=== PATIENT | female | born 1950 | race Caucasian/White ===

== ENCOUNTER 2016-12-04 07:18 | Day surgery (SDC) | payer MEDICARE, OTHER ==
[~2016-12-04 07:18] MED LIST: Lactated Ringers 1,000 ML IV SCH
[2016-12-04] MEDS ORDERED: Lactated Ringers 1,000 ML IV ONE ×2 (07:20→09:18)
[2016-12-04 07:42] VITALS: O2SAT 98
[2016-12-04] MEDS ORDERED: DIPRIVAN 200 MG/20 ML IV ONE (08:00)
[2016-12-04] MEDS ORDERED: Ketamine HCl 50 MG/ML IJ ONE (08:00)
[2016-12-04 10:39] VITALS: BP 137/58; PULSE 53
--- NOTE | 2016-12-05 08:30 | OP ---
PROCEDURE DATE/TIME: 12/04/2016 0850 PREOPERATIVE DIAGNOSES: 1) GI bleed. 2) Left upper quadrant abdominal pain. POSTOPERATIVE DIAGNOSES: 1) Peptic ulcer disease with multiple gastric ulcers including one moderate sized antral ulcer of approximately 3 cm. 2) Mild gastritis. 3) Mild duodenitis. 4) Colonic polyp. 5) Mild diverticulosis. 6) External hemorrhoids, mild disease. PROCEDURES: 1) EGD. 2) Colonoscopy. PROCEDURE PERFORMED BY: Nenita Olson M.D. ANESTHESIA: MAC. ESTIMATED BLOOD LOSS: Minimal. COMPLICATIONS: None. SPECIMENS: 1) Gastric antral ulcer. 2) Descending colon polyp. HISTORY: This is a patient who presents with GI bleeding and left upper quadrant abdominal pain. All risks, benefits, alternatives to EGD and colonoscopy were discussed with the patient preoperatively and she understands and would like to proceed. She was seen in the preoperative area again and any remaining questions are answered. DESCRIPTION OF PROCEDURE: She was brought back to the endoscopy suite. She was laid in the left lateral decubitus position. A complete time out was performed. The scope was then entered into the mouth, oropharynx and down into the esophagus. The scope was easily advanced into the stomach and we then encountered a few wispy streaks of old blood. Multiple peptic ulcers are identified. Each of these was quite small less than 1 cm. None of them appeared malignant. We did however find one moderate to large size ulcer right in the antrum leading towards the pylorus and this was an approximate 3 cm ulcer. None of the ulcers are bleeding. None of them looked malignant but I do believe that this is likely the cause of her left upper quadrant pain and may have contributed in the past to her GI bleeding. The scope was then easily advanced into the duodenum. There was some mild duodenitis and then the scope was withdrawn back into the antrum. She did have some mild gastritis as well throughout the body of the stomach. The scope was able to be retroflexed to look at the hiatus. The cardia of the stomach looked healthier. The scope was then un-retroflexed. We revisualized the ulcers. Again there were no malignancies. I did take multiple biopsies of the larger ulcer and sent these to pathology as gastric antral ulcer biopsies and I also biopsied the smaller gastric ulcer. She had a couple more gastric ulcers that appeared very benign. All of these biopsies were taken with cold forceps and each site was hemostatic after biopsy. The stomach was desufflated and the scope was carefully withdrawn. I did not find any other findings. We will plan to scope her in approximately two to three months. I have started her on a proton pump inhibitor as well as Carafate. She was then repositioned for colonoscopy. First, a rectal exam was done. The patient does have a small external hemorrhoid. The disease here is very mild. The scope was then inserted and then carefully advanced towards the cecum. Her colon is extremely tortuous. She does have mild diverticulosis and she did have a small amount of stool in the colon which we had to suction and irrigate. A very small or flat lesion could be missed in this site where the prep was not perfect. However, we were able to see much of the mucosa and this appeared very healthy. In route to the cecum, we did identify a polyp at approximately the level of the descending colon this is taken with hot snare in entirety. The site looked excellent after it was removed. We retrieved this and sent this to pathology. We were able to carefully guide the scope to the cecum with some gentle abdominal pressure. In the cecum the appendiceal orifice is visualized and then we could see the edge of the ileocecal valve. I could not intubate the valve because it was quite an angle so we could only see the edge of this. I did not see any obvious issues in the cecum. We then carefully withdrew the scope taking a circumferential look. There were no other significant findings except for the polyp that was already removed and the mild diverticulosis and mild hemorrhoidal disease. The scope is then completely withdrawn after desufflating the rectum. The patient tolerated the procedures very well. There were no immediate complications. We will start her on proton pump inhibitor, Carafate, and then repeat her EGD in approximately two to three months and then we will plan to do another colonoscopy in approximately three years or sooner should she have any new symptoms. She will also follow up with me in approximately one to two weeks to discuss the results of her pathology findings when they come back.
== END 2016-12-04 11:09 | disposition home or self-care (01) ==
LOC: SDC 07:18
PROVIDERS: ATTEND Surgery
PROC: 0DB68ZX Excision of Stomach, Via Natural or Artificial Opening Endoscopic, Diagnostic (ICD-10-PCS; principal; 2016-12-04)
PROC: 0DBM8ZX Excision of Descending Colon, Via Natural or Artificial Opening Endoscopic, Diagnostic (ICD-10-PCS; 2016-12-04)
DX: K25.9 Gastric ulcer, unspecified as acute or chronic, without hemorrhage or perforation (principal); R10.12 Left upper quadrant pain; K29.70 Gastritis, unspecified, without bleeding; K29.80 Duodenitis without bleeding; D12.4 Benign neoplasm of descending colon; K64.4 Residual hemorrhoidal skin tags
CPT/HCPCS: 00740; 00810; 36415; 88305; J2704